=== PATIENT | male | born 1990 | race Caucasian/White ===

== ENCOUNTER 2019-10-23 20:45 | Emergency (ER) | payer MEDICAID, OTHER ==
[~2019-10-23] VITALS: Ht 165.1 cm; Wt 88.5 kg
--- NOTE | 2019-10-23 22:06 | NUR ---
BIB FAMILY FOR C/O ABD PAIN X 5 DAYS, WORSE TODAY. -N/V/D
[2019-10-23] MEDS ORDERED: MORPHINE SULFATE INJ 2 MG/ML DISP.SYRIN IV ONE (22:30)
[2019-10-23] MEDS ORDERED: ONDANSETRON HCL/PF 4 MG/2 ML VIAL IVP ONE (22:30)
[2019-10-23] MEDS ORDERED: MAG HYDROX/AL HYDROX/SIMETH 30 ML UDC PO ONE (22:30)
[2019-10-23] MEDS ORDERED: IV NS 0.9% 500 ML BAG IV ONE (22:30)
[2019-10-23] MEDS ORDERED: LIDOCAINE VISCOUS 2% UD 15 ML UDC MM ONE (22:30)
[2019-10-23] MEDS ORDERED: MAG HYDROX/AL HYDROX/SIMETH 30 ML UDC ONE (22:32)
[2019-10-23] MEDS ORDERED: LIDOCAINE VISCOUS 2% UD 15 ML UDC ONE (22:32)
[2019-10-23] MEDS ORDERED: MORPHINE SULFATE INJ 4 MG/ML DISP.SYRIN ONE (22:32)
[2019-10-23] MEDS ORDERED: ONDANSETRON HCL/PF 4 MG/2 ML VIAL ONE (22:32)
[2019-10-23 22:33] LABS: BASOPHILS # (AUTO) 0.1 /CMM (0.0-0.2); BASOPHILS % (AUTO) 0.9 % (0.0-2.0); EOSINOPHILS % (AUTO) 3.7 % (0.0-6.0); HEMATOCRIT 49 % (39-51); HEMOGLOBIN 16.6 g/dL (13.5-17.5); LYMPHOCYTES # (AUTO) 2.3 /CMM (0.8-4.8); LYMPHOCYTES % (AUTO) 26.3 % (20.0-44.0); MEAN CORPUSCULAR HGB CONC 34 g/dl (31.0-36.0); MEAN CORPUSCULAR VOLUME 83 fL (80-96); MONOCYTES # (AUTO) 0.9 /CMM (0.1-1.30); MONOCYTES % (AUTO) 9.9 % (2.0-12.0); NEUTROPHILS # (AUTO) 5.2 /CMM (1.8-8.9); NEUTROPHILS % (AUTO) 59.2 % (43.0-81.0); PLATELET COUNT (AUTO) 271 /CMM (150-450); RED BLOOD CELL COUNT(AUTO) 5.98 MIL/uL (4.5-6.0); WHITE BLOOD COUNT (AUTO) 8.7 K/uL (4.3-11.0)
[2019-10-23 22:40] LABS: CALCIUM, SERUM 9.1 mg/dL (8.5-10.1); CREATININE 0.7 mg/dL (0.6-1.3); POTASSIUM 3.5 mmol/L (3.5-5.1)
[2019-10-23 22:45] LABS: ALBUMIN 3.7 g/dL (3.4-5.0); BILIRUBIN,DIRECT 0.1 mg/dL (0.0-0.2); BILIRUBIN,TOTAL 0.5 mg/dL (0.2-1.0); TOTAL PROTEIN, SERUM 7.5 g/dL (6.4-8.2)
--- NOTE | 2019-10-23 23:31 | NUR ---
RESTING IN BED . REPORTED FEELING MUCH BETTER. VSS
[2019-10-23 23:46] VITALS: BP 122/80
--- NOTE | 2019-10-23 23:46 | NUR ---
IV removed. Catheter intact and site benign. Pressure and 4x4 applied to site. No bleeding noted.Patient discharged to home in stable condition. Rx and Written and verbal after care instructions given. Patient verbalizes understanding of instruction.
== END 2019-10-23 23:46 | disposition home or self-care (01) ==
LOC: ER 20:50
DX: K29.70 Gastritis, unspecified, without bleeding (principal)
CPT/HCPCS: 36415; 80048; 80076; 83690; 85025; 96361; 96374; 96375; 99283; J2270; J2405; J7040

== ENCOUNTER 2020-01-14 14:19 | Emergency (ER) | payer MEDICAID ==
[~2020-01-14] VITALS: Ht 165.1 cm; Wt 81.6 kg
--- NOTE | 2020-01-14 14:30 | NUR ---
patient came in to the er c/o purulent discharge in the belly button x 1 week, denies any pain at this itme. On room air, breathing evenly and unlabored. kept comfortable, will continue to monitor accordingly.
[2020-01-14 15:17] VITALS: BP 140/79
--- NOTE | 2020-01-14 15:18 | NUR ---
Patient discharged to home in stable condition. Written and verbal after care instructions given. Patient verbalizes understanding of instruction.
== END 2020-01-14 15:18 | disposition home or self-care (01) ==
LOC: ER 14:24
DX: L03.316 Cellulitis of umbilicus (principal)
CPT/HCPCS: 82962-TC

== ENCOUNTER 2020-05-27 16:25 | Emergency (ER) | payer MEDICAID ==
[~2020-05-27] VITALS: Ht 165.1 cm; Wt 80.7 kg
[2020-05-27 16:30] VITALS: BP 146/82
== END 2020-05-27 16:47 | disposition home or self-care (01) ==
LOC: ER 16:29
DX: L03.316 Cellulitis of umbilicus (principal); E66.9 Obesity, unspecified; Z68.29 Body mass index [BMI] 29.0-29.9, adult

== ENCOUNTER 2022-07-08 18:07 | Emergency (ER) | payer MEDICAID ==
[~2022-07-08] VITALS: Ht 162.6 cm; Wt 86.2 kg
[2022-07-08 18:15] VITALS: BP 158/83
[2022-07-08] MEDS ORDERED: IBUP-1953 PO (18:30)
[2022-07-08] MEDS ORDERED: GABA-532 PO (18:30)
--- NOTE | 2022-07-08 18:42 | NUR ---
Patient discharged to home in stable condition. Written and verbal after care instructions given. Patient verbalizes understanding of instruction.
== END 2022-07-08 18:42 | disposition home or self-care (01) ==
LOC: ER 18:15
DX: M54.31 Sciatica, right side (principal); Z79.899 Other long term (current) drug therapy

== ENCOUNTER 2022-07-15 19:23 | Emergency (ER) | payer MEDICAID ==
[~2022-07-15] VITALS: Ht 162.6 cm; Wt 86.2 kg
[~2022-07-15 19:23] MED LIST: GABA-532 PO; IBUP-1953 PO
[2022-07-15 19:58] VITALS: BP 135/70
--- NOTE | 2022-07-15 19:58 | NUR ---
BIBSELF FROM HOME C/O RIGHT BACK PAIN RAD TO RIGHT LEG
[2022-07-15] MEDS ORDERED: KETO10TA2 PO (20:15)
[2022-07-15] MEDS ORDERED: CYCL5TAB PO (20:15)
--- NOTE | 2022-07-15 20:25 | NUR ---
Patient discharged to home in stable condition. RX Written and verbal after care instructions given. Patient verbalizes understanding of instruction.
== END 2022-07-15 20:26 | disposition home or self-care (01) ==
LOC: ER 19:24
DX: M54.31 Sciatica, right side (principal); Z79.899 Other long term (current) drug therapy